=== PATIENT | female | born 1940 | race Caucasian/White ===

== ENCOUNTER 2024-06-22 01:57 | Outpatient (CLI) | payer MEDICARE, BC, SELFPAY ==
--- NOTE | 2024-06-22 11:06 | DI.RAD_ITS ---
Exam(s) XR LUMBAR SPINE COMPLETE EXAM: XR LUMBAR SPINE COMPLETE CLINICAL HISTORY: LOW BACK PAIN WITH RADIATION,HIP PAIN,M54.9,M25.559. TECHNIQUE: 2D digital imaging was performed of the lumbar spine. Five images were obtained. AP, la teral, right oblique, left oblique and L5-S1 spot views were obtained. COMPARISON: CR LUMBAR SPINE COMPLETE from 01/31/2009 FINDINGS: BONES: No fracture or destructive lesion. There are endplate osteophytes at all levels of the lumbar spine, most marked from T12-L1 through L4-L5. There are degenerative changes of the facets at multipl e levels of the lumbar spine. DISKS: There is disc space narrowing at all levels of the lumbar spine. Vacuum discs are seen at L1- L2 and L2-L3. ALIGNMENT: There is a mild left convex curvature of the lumbar spine. No spondylolysis or spondyloli sthesis. SOFT TISSUE: There is stool throughout the colon suggesting constipation. 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 DATA REPOSITORY: RADIATION DOSE DELIVERED:
--- NOTE | 2024-06-22 11:06 | DI.RAD_ITS ---
Exam(s) XR HIP PELVIS ADULT BL EXAM: XR HIP PELVIS ADULT BL CLINICAL HISTORY: leg pain, hip and back pain,m54.9,m25.559. TECHNIQUE: 2D digital imaging was performed of the pelvis and bilateral hips. Four images were obta ined. AP pelvis and lateral views of both hips were obtained. COMPARISON: No exams were available for comparison FINDINGS: BONES: No acute fracture is present. No bony destructive lesion is seen. JOINTS: There is very mild narrowing of the hip joints bilaterally. The hips are otherwise well main tained. Mild degenerative changes are seen at the sacroiliac joints. The symphysis pubis is unremar kable. SOFT TISSUE: Normal. IMPRESSION: Mild joint space narrowing of the hips bilaterally. DATA REPOSITORY: RADIATION DOSE DELIVERED:
== END 2024-06-22 02:17 ==
LOC: DI 02:19
PROVIDERS: PCP Family Medicine; Visit Provider Family Medicine
DX: M51.362 Other intervertebral disc degeneration, lumbar region with discogenic back pain and lower extremity pain; M16.0 Bilateral primary osteoarthritis of hip
CPT/HCPCS: 73521; 72110